=== PATIENT | female | born 1970 | race Caucasian/White ===

== ENCOUNTER → 2024-11-21 08:57 | Outpatient (BNVA) | payer MEDICAID, SELFPAY | PROVIDERS: Family Provider Family Medicine; PCP Family Medicine; Visit Provider Nurse Practitioner Family | DX: L98.8 Other specified disorders of the skin and subcutaneous tissue (principal); L57.8 Other skin changes due to chronic exposure to nonionizing radiation; L81.4 Other melanin hyperpigmentation; L73.2 Hidradenitis suppurativa; L53.8 Other specified erythematous conditions; R20.8 Other disturbances of skin sensation | CPT/HCPCS: 11900; 99203 ==

== ENCOUNTER → 2024-11-30 10:57 | Outpatient (BNVA) | payer MEDICAID, SELFPAY | PROVIDERS: Family Provider Family Medicine; PCP Family Medicine; Visit Provider Nurse Practitioner Family | DX: L73.2 Hidradenitis suppurativa (principal) | CPT/HCPCS: 99214 ==

== ENCOUNTER → 2024-12-14 10:38 | Outpatient (BNVA) | payer MEDICAID, SELFPAY | PROVIDERS: Family Provider Family Medicine; PCP Family Medicine; Visit Provider Nurse Practitioner Family | DX: L73.2 Hidradenitis suppurativa (principal); L98.8 Other specified disorders of the skin and subcutaneous tissue; L57.8 Other skin changes due to chronic exposure to nonionizing radiation; L81.4 Other melanin hyperpigmentation | CPT/HCPCS: 99214 ==

== ENCOUNTER 2025-01-30 07:52 | Day surgery (SDC) | payer MEDICAID, SELFPAY ==
[2025-01-30] VITALS (13 sets, daily range): BP systolic 135–175; BP diastolic 63–96; PULSE 78–86; RESP 16–18; TEMP 30–36.6; O2SAT 94–100; BMI 37.3
--- NOTE | 2025-01-30 09:35 | ANES.PREANE2 ---
Pre-Anesthetic Assessment Height/Weight: Height 5 ft 6 in Weight 231 lb Temp Pulse Resp BP Pulse Ox O2 Del Method 86 F L 86 18 154/83 97 Room Air 01/30/25 08:09 01/30/25 08:09 01/30/25 08:09 01/30/25 08:09 01/30/25 08:09 01/30/25 08:09 Preop Diagnosis: Hidradenitis of the chest wall Operation Date: 01/30/25 09:35 Proposed Procedures p excision left chest hidradenitis suppurativa [id number](Left) - Basilio Hannah MD Was Beta Melinda taken within 24 hours: Yes Was Clonidine taken within 24 hours: N/A Last intake: Intake Last Liquid Date 01/29/25 Last Liquid Time 21:00 Last Solid Date 01/29/25 Last Solid Time 21:00 Social Tobacco and No alcohol Exam alert, oriented x 3 and regular rate & rhythm Airway Submandibular: within normal limits Cervical ROM: within normal limits Mallampati: Class II Comments: Comments: No teeth left, you can see the bases of her front decaying teeth Anesthetic Plan ASA status: 3 Anesthesia: General Other: No prior issues with anesthesia NPO since yesterday evening History of GERD on Pepcid Hypertension on metoprolol On chronic dulaglutide. Initially she said she took her injectable 6 days ago but then when questioned about it needing to be a week she rephrased NSAID at least 7 days ago Plan for GETA with RSI Medications/Allergies Home Medications ?Medication ?Instructions ?Recorded ?Confirmed ?Last Taken ?Type clindamycin phosphate 1 % lotion 1 applic topical BID 12/27/24 01/26/25 01/26/25 History dapagliflozin propanediol 5 mg 5 mg PO DAILY 12/27/24 01/26/25 01/26/25 History tablet (Farxiga) doxycycline hyclate 100 mg capsule 100 mg PO DAILY 12/27/24 01/26/25 01/26/25 History dulaglutide 4.5 mg/0.5 mL 4.5 mg SUBCUT .WEEKLY 12/27/24 01/26/25 01/24/25 History subcutaneous pen injector (Trulicity) duloxetine 60 mg capsule,delayed 60 mg PO DAILY 12/27/24 01/26/25 01/26/25 History release ergocalciferol (vitamin D2) 1,250 1,250 mcg PO .WEEKLY 12/27/24 01/26/25 01/24/25 History mcg (50,000 unit) capsule (Vitamin D2) famotidine 20 mg tablet 20 mg PO BID 12/27/24 01/26/25 01/26/25 History gabapentin 300 mg capsule 300 mg PO BID 12/27/24 01/26/25 01/26/25 History galcanezumab-gnlm 120 mg/mL 120 mg SUBCUT .MONTHLY 12/27/24 01/26/25 01/18/25 History subcutaneous pen injector (Emgality Pen) hydrocodone 7.5 mg-acetaminophen 1 tab PO TID 12/27/24 01/26/25 01/26/25 History 325 mg tablet metoprolol tartrate 100 mg tablet 100 mg PO BID 12/27/24 01/26/25 01/30/25 05:30 History mupirocin 2 % topical ointment 1 applic topical BID 12/27/24 01/26/25 01/26/25 History ondansetron HCl 4 mg tablet 4 mg PO PRN PRN Nausea And Vomiting 12/27/24 01/26/25 Unknown History rimegepant 75 mg disintegrating 75 mg PO PRN PRN Migraine Headache 12/27/24 01/26/25 Unknown History tablet (Nurtec ODT) tizanidine 2 mg tablet 2 mg PO TID 12/27/24 01/26/25 01/26/25 History amoxicillin 875 mg-potassium 1 tab PO BID 7 days #14 tabs 01/10/25 01/26/25 01/26/25 Rx clavulanate 125 mg tablet aspirin 325 mg tablet 325 mg PO BID 01/30/25 01/30/25 01/27/25 07:00 History Allergies Allergy/AdvReac Type Severity Reaction Status Date / Time latex Allergy ALGY-Hives Verified 01/26/25 15:29 metformin Allergy ALGY-Hives Verified 01/26/25 15:29 neoprene Allergy ALGY-Hives Uncoded 01/26/25 15:29 Current Medications Generic Name Dose Route Start Last Admin Trade Name Freq PRN Reason Stop Dose Admin Sodium Chloride 1,000 mls @ 30 mls/hr 01/30/25 08:00 01/30/25 08:27 Sodium Chloride 0.9% IV 01/31/25 07:59 30 mls/hr .Q24H ROSANGELA Administration PFSH Anesthesia Family History Unknown Melanoma Father Colon polyps Breast cancer Father Breast cancer Social History Smoking and tobacco/nicotine status: current every day tobacco/nicotine user
--- NOTE | 2025-01-30 09:50 | P.HPUD_ITS ---
Surgery/Procedure H&P Update DATE OF PROCEDURE: January 30, 2025 DATE H&P PERFORMED: 01/10/25 H&P UPDATE INFORMATION: I have reviewed H&P completed within last 30 days, I have examined patient prior to procedure, No changes to prior documentation, H&P is in [facility] EMR on date indicated and Risks and benefits of the procedure reviewed PREOP DIAGNOSIS: Hidradenitis of the chest wall PLANNED PROCEDURE: Operation Date: 01/30/25 09:35 Proposed Procedures p excision left chest hidradenitis suppurativa [id number](Left) - Basilio Hannah MD
[2025-01-30] MEDS: ceFAZolin 2,000 mg SDV 2000 MG IVP (10:14)
[2025-01-30] MEDS: BUPivacaine 0.25% INJ 30 mL INJECTION (10:44)
[2025-01-30] MEDS: lidocaine-epi 1% PF 1:200,000 30 mL SDV INJECTION (10:45)
--- NOTE | 2025-01-30 11:38 | P.OP_ITS ---
Operative Report Date of procedure: January 30, 2025 Pre-op diagnosis: Left chest wall hidradenitis suppurativa Post-op diagnosis: Same Post-op findings: An area of 15 x 6 x 2 cm of hidradenitis suppurativa of the left chest wall was excised Procedure done: Excision of hidradenitis suppurativa of the left chest wall to the level of the fascia measuring 15 x 6 x 2 cm Specimens removed/disposition: Left chest wall hidradenitis suppurativa Surgeon: Basilio Hannah MD Instrument Technician Helper: natalie or staff Estimated blood loss: 10 Complications: none Brief History: 54-year-old female with history of hidradenitis suppurativa left chest wall who has failed conservative management and presents for excision Procedure: Patient was brought into the OR, placed in a supine position. General anesthesia was given. The chest wall was prepped and draped in the usual sterile fashion and a timeout was conducted. The area of hidradenitis was identified and then I proceeded to marcel an elliptical shape around the affected area to be able to encompass the whole disease. I then proceeded to make an incision with a 15 blade following the outline of the elliptical area previously marked, the incision was deepened to subcutaneous tissue. I then used electrocautery to deepen the incision all the way down to the fascia and the subcutaneous tissue including the specimen was excised. Total area of excision was 15 x 6 x 2 cm. Hemostasis was achieved. The wound was irrigated with abundant saline. The wound was then closed in layers using #2-0 Vicryl for the deep subcutaneous tissue #3-0 Vicryl for the superficial subcutaneous tissue and #3-0 nylon vertical mattress sutures for the skin. Steri-Strips were applied and a sterile dressing was placed on top. At the end of the procedure all counts were correct, the patient tolerated well the procedure was transferred to the PACU in stable condition
--- NOTE | 2025-01-30 12:25 | ANE.PACU2 ---
Inpatient post-anesthesia follow up: Airway intact: Yes Vital signs: Temperature 97.2 F Pulse Rate 83 Respiratory Rate 18 Blood Pressure 148/63 Pulse Oximetry 94 Oxygen Delivery Me thod Room Air Oxygen Flow Rate 8 Fraction of Inspir ed Oxygen Hydration adequate: Yes Nausea and vomiting: No Pain level: 1 Mental status: Baseline
== END 2025-01-30 12:45 | disposition home or self-care (01) ==
PROVIDERS: PCP Nurse Practitioner; Visit Provider Surgery
PROC: (CPT 11450; principal; 2025-01-30 09:25)
DX: L73.2 Hidradenitis suppurativa (principal); K21.9 Gastro-esophageal reflux disease without esophagitis; I10 Essential (primary) hypertension; Z79.891 Long term (current) use of opiate analgesic; Z79.82 Long term (current) use of aspirin; Z85.820 Personal history of malignant melanoma of skin; F17.200 Nicotine dependence, unspecified, uncomplicated; Z80.3 Family history of malignant neoplasm of breast
CPT/HCPCS: 11450; 36416; 82962; 88304; J0690; J1100; J1171; J1885; J2250; J2405; J2704; J3010; J3490; J7030; J9999